=== PATIENT | female | born 1970 | race Caucasian/White ===

== ENCOUNTER 2016-07-22 10:48 | Emergency (ER) | payer BC ==
[2016-07-22 11:07] VITALS: BP 137/82; PULSE 83; TEMP 98.4; BMI 27.8
[2016-07-22] MEDS ORDERED: KETOROLAC TROMETHAMINE 60 MG/2 ML VIAL IM ONE (11:31)
[2016-07-22] MEDS ORDERED: diazePAM 5 MG TABLET PO ONE (11:32)
[2016-07-22] MEDS ORDERED: KETOROLAC TROMETHAMINE 60 MG/2 ML VIAL ONE (11:33)
[2016-07-22] MEDS ORDERED: diazePAM 5 MG TABLET ONE (11:33)
--- NOTE | 2016-07-22 12:13 | PDOC ---
History of Present Illness - General Chief Complaint: Back Pain Stated Complaint: BACK PAIN Time Seen by Provider: 07/22/16 11:24 History Source: Patient - History of Present Illness Occurred: reports: other Severity: reports: severe Pain Location: reports: back Past History - Past Medical History Allergies/Adverse Reactions: Allergies Allergy/AdvReac Type Severity Reaction Status Date / Time No Known Allergies Allergy Verified 07/22/16 11:03 Home Medications: Ambulatory Orders Cyclobenzaprine HCl [Flexeril -] 10 mg PO TID #9 tablet 07/22/16 Ibuprofen [Motrin -] 800 mg PO Q6H #30 tablet 07/22/16 Diabetes: Yes HTN: Yes Hypercholesterolemia: Yes - Surgical History Appendectomy: Yes Cholecystectomy: Yes - Psycho/Social/Smoking Cessation Hx Suicidal Ideation: No Smoking History: Never smoked Review of Systems - Review of Systems Constitutional: No: Chills, Fever ABD/GI: No: Nausea, Vomiting : No: Dysuria, Flank Pain, Hematuria Integumentary: Yes: Bruising Neurological: No: Numbness, Tingling, Weakness *Physical Exam - Vital Signs Last Vital Signs Temp Pulse Resp BP Pulse Ox 98.4 F 83 20 137/82 100 07/22/16 11:03 07/22/16 11:03 07/22/16 11:03 07/22/16 11:03 07/22/16 11:03 - Physical Exam General Appearance: Yes: Appropriately Dressed, Severe Distress HEENT: positive: Normal Voice Neck: positive: Supple Respiratory/Chest: negative: Respiratory Distress Gastrointestinal/Abdominal: positive: Soft. negative: Tender Musculoskeletal: positive: Other (ttp to superior aspect of medial right gluteus , no rash or induration) Extremity: positive: Normal Inspection Integumentary: positive: Dry, Warm Neurologic: positive: Fully Oriented, Alert, Normal Mood/Affect ED Treatment Course - RADIOLOGY Radiology Studies Ordered: Category Date Time Status HIP & PELVIS-RIGHT [RAD] Stat Radiology 07/22/16 11:32 Ordered SPINE-LUMBAR SACRAL [RAD] Stat Radiology 07/22/16 11:32 Ordered Medical Decision Making - Medical Decision Making 07/22/16 11:34 45 yo female history of diabetes and hypertension presenting with severe back pain. Patient reports severe pain to right gluteus 2 days ago while cleaning her house, unable to describe pain but states it is constant with 10 out of 10 in intensity and worse when she stands up from a sitting position. States she' s had back pain in the past but not this severe. States pain does not radiate and denies lower extremity weakness, bowel or bladder incontinence or saddle anesthesia. Took tylenol w/ no relief. No dysuria, hematuria, nausea, vomiting , fever or chills. Pt appears very uncomfortable in ED w/ localized tenderness to superior aspect of medial R gluteus, no rash or induration palpated. Pain possible MSK. Will get XR given degree of pain and control pain in ED 07/22/16 12:42 07/22/16 13:05 XRs unremarkable. Pt reports sig improvement w/ meds. Stable for dc w/ pain control and PMD f/u if pain persists *DC/Admit/Observation/Transfer Diagnosis at time of Disposition: Back pain Qualifiers: Back pain location: low back pain Chronicity: acute Back pain laterality: right Sciatica presence: without sciatica Qualified Code(s): M54.5 - Low back pain - Discharge Dispostion Disposition: HOME Condition at time of disposition: Improved - Prescriptions Prescriptions: Cyclobenzaprine HCl [Flexeril -] 10 mg PO TID #9 tablet Ibuprofen [Motrin -] 800 mg PO Q6H #30 tablet - Patient Instructions Printed Discharge Instructions: Low Back Pain Additional Instructions: Take medications as directed and if pain persists, follow up with your PMD Print Language: SWEDISH
== END 2016-07-22 13:08 | disposition home or self-care (01) ==
LOC: JERFT 10:48
PROC: 3E0233Z Introduction of Anti-inflammatory into Muscle, Percutaneous Approach (ICD-10-PCS; principal; 2016-07-22)
DX: M54.5 Low back pain (principal); I10 Essential (primary) hypertension; E11.9 Type 2 diabetes mellitus without complications; E78.00 Pure hypercholesterolemia, unspecified
CPT/HCPCS: 72100-TC; 73523-TC; 99281-25